=== PATIENT | male | born 1985 | race Two or more races ===

== ENCOUNTER 2019-08-18 01:03 | Inpatient (IN) | payer MEDICAID, OTHER ==
[2019-08-18] VITALS (7 sets, daily range): BP systolic 134–165; BP diastolic 51–102
[~2019-08-18] VITALS: Ht 162.6 cm; Wt 83.5 kg
[2019-08-18] MEDS ORDERED: LORAZEPAM INJ 2 MG/ML VIAL ONE (01:07)
--- NOTE | 2019-08-18 01:15 | NUR ---
FSBS: 361 MD AWARE
--- NOTE | 2019-08-18 01:20 | NUR ---
SPOKE WITH PT'S , STATES PT HAD SEIZURE AROUND 12PM AND HAS BEEN LETHARGIC ALL DAY. PER , PT WAS ALSO C/O HEADACHE AND R ARM DISCOMFORT PRIOR TO ARRIVAL. STATES PT HAS BEEN FORGETFUL AND "NOT HIMSELF" FOR A FEW DAYS.
--- NOTE | 2019-08-18 01:20 | NUR ---
end t nimo for NS: 0150
[2019-08-18 01:24] LABS: BASOPHILS # (AUTO) 0.1 /CMM (0.0-0.2); BASOPHILS % (AUTO) 0.4 % (0.0-2.0); EOSINOPHILS % (AUTO) 0.4 % (0.0-6.0); HEMATOCRIT 46 % (39-51); HEMOGLOBIN 15.8 g/dL (13.5-17.5); LYMPHOCYTES # (AUTO) 4.1 /CMM (0.8-4.8); LYMPHOCYTES % (AUTO) 34.3 % (20.0-44.0); MEAN CORPUSCULAR HGB CONC 34 g/dl (31.0-36.0); MEAN CORPUSCULAR VOLUME 91 fL (80-96); MONOCYTES # (AUTO) 0.5 /CMM (0.1-1.30); MONOCYTES % (AUTO) 4.1 % (2.0-12.0); NEUTROPHILS # (AUTO) 7.2 /CMM (1.8-8.9); NEUTROPHILS % (AUTO) 60.8 % (43.0-81.0); PLATELET COUNT (AUTO) 261 /CMM (150-450); RED BLOOD CELL COUNT(AUTO) 5.11 MIL/uL (4.5-6.0); WHITE BLOOD COUNT (AUTO) 11.9 K/uL (4.3-11.0)
--- NOTE | 2019-08-18 01:24 | NUR ---
2ND IV LINE STARTED
--- NOTE | 2019-08-18 01:25 | NUR ---
code stroke called and pt was wheeled to the CT
[2019-08-18] MEDS ORDERED: IOHEXOL-350 100 ML VIAL IV ONE (01:26)
[2019-08-18] MEDS ORDERED: IV NS 0.9% 250 ML IV ONE (01:26)
[2019-08-18] MEDS ORDERED: LORAZEPAM INJ 2 MG/ML VIAL IVP ONE (01:30)
[2019-08-18] MEDS ORDERED: IV NS 0.9% 500 ML BAG IV ONE (01:30)
[2019-08-18 01:37] LABS: ALANINE AMINOTRANSFERASE 26 U/L (12-78); ALBUMIN 1.9 g/dL (3.4-5.0); ALCOHOL, BLOOD < 3 mg/dL (0-0); ALKALINE PHOSPHATASE 117 U/L (46-116); ASPARTATE AMINOTRANSFERASE 17 U/L (15-37); BILIRUBIN,DIRECT 0.1 mg/dL (0.0-0.2); BILIRUBIN,TOTAL 0.3 mg/dL (0.2-1.0); CALCIUM, SERUM 9.1 mg/dL (8.5-10.1); CARBON DIOXIDE 27 mmol/L (21-32); CHLORIDE 95 mmol/L (98-107); CREATININE 2.3 mg/dL (0.6-1.3); POTASSIUM 4.2 mmol/L (3.5-5.1); SODIUM SERUM 129 mmol/L (136-145); TOTAL PROTEIN, SERUM 6.7 g/dL (6.4-8.2); UREA NITROGEN, BLOOD 25 mg/dL (7-18)
[2019-08-18 01:40] LABS: GLUCOSE 376 mg/dL (74-106)
--- NOTE | 2019-08-18 01:40 | NUR ---
BACK FROM CT
--- NOTE | 2019-08-18 01:44 | NUR ---
PT ON TELE NEURO ASSESSMENT BY DR MURRAY
--- NOTE | 2019-08-18 01:50 | NUR ---
DR. BATES ON THE PHONE WITH NEUROLOGIST, DR. MOYA
--- NOTE | 2019-08-18 01:59 | NUR ---
[facility]
--- NOTE | 2019-08-18 02:05 | NUR ---
DR. BATES ON THE PHONE WITH DR. LENZ
[2019-08-18] MEDS ORDERED: LEVETIRACETAM (500MG) 500 MG/5 ML VIAL IV ONE (02:14)
[2019-08-18] MEDS ORDERED: LABETALOL HCL IV 100MG VIAL ONE (02:15)
[2019-08-18] MEDS ORDERED: LABETALOL HCL IV 100MG VIAL IV ONE (02:30)
[2019-08-18] MEDS ORDERED: LEVETIRACETAM (500MG) 1,000 MG in IV NS 0.9% 100 ML IV SCH (02:30)
--- NOTE | 2019-08-18 02:43 | NUR ---
REPORT GIVEN TO ALDO
--- NOTE | 2019-08-18 02:53 | NUR ---
MORTGAGE PROCESSING MANAGERUTILITY BILL COLLECTOR NOTES Received patient from ER via [facility] accompanied by 2 ER staff. Admitted to Tele 325-2 due to stroke under the service of Dr. Kevin Kaur. Transferred patient to bed comfortably with 4 persons assists. Patient noted unable to move Right Side of his body. Admission routine done. Patient's belongings inventory completed by the assigned JIG AND FIXTURE REPAIRER, patient unable to sign due to condition. Put on tele monitor, NSR noted. Initial skin assessment done: no skin issues identified at this time. Patient noted with difficulty answering routine admission questions. Able to speak with the Tammi. Patient noted with severe R LUE/LLE weakness, no resistance to gravity; L LUE/LLE with some resistance to gravity. Peripheral IV line noted on RFA G#18, SL; LAC G#18 SL both patent, no s/sx of infiltration noted. Patient saturating well in RA. Slurred speech noted. Kept on NPO, mouth care done, patient noted able to swallow water without difficulty noted. Awaiting for admission MD's admitting orders at this time. Kept patient on bed comfortably, BLE SCD on, HOB elevated. On fall and aspiration precautions. Will continue to monitor accordingly.
--- NOTE | 2019-08-18 03:01 | NUR ---
PT WAS TRANSFERRED TO 325 UNDER ACLS
[2019-08-18] MEDS ORDERED: INSU100V28 IJ (04:34)
[2019-08-18] MEDS ORDERED: METF-442 PO (04:34)
[2019-08-18] MEDS ORDERED: LORAZEPAM INJ 2 MG/ML VIAL IV PRN (07:00)
--- NOTE | 2019-08-18 07:03 | NUR ---
RN CLOSING NOTES Patient asleep, easily awaken. On RA, no SOB/respiratory distress noted. On tele monitor with NSR noted. All nursing needs attended. Kept on bed clean, dry and comfortable. On fall, seizure and aspiration precautions, call light within easy reach. Endorsed.
[2019-08-18] MEDS ORDERED: DEXTROSE 50%-WATER 50 ML DISP.SYRIN IV PRN (08:00)
[2019-08-18] MEDS ORDERED: METFORMIN 500 MG TABLET PO SCH (09:00)
--- NOTE | 2019-08-18 09:00 | NUR ---
rn called dr. keith and questioning if need for neuro consult.states he will take care of it. as well requested that he call and give her an update.md asked rn to call and inform her that he would call her later today or tomorrow.rn did call at this time.
[2019-08-18 09:33] LABS: CHOLESTEROL 492 mg/dL (<200); HDL CHOLESTEROL 53 mg/dL (40-60); LDL 294 mg/dL (0-99); TRIGLYCERIDES 872 mg/dL (30-150)
--- NOTE | 2019-08-18 11:00 | NUR ---
swallow eval done at 1100 am and keppra given at 1159.
[2019-08-18] MEDS: ONDANSETRON HCL/PF 4 MG/2 ML VIAL IV PRN ×2 (11:23→22:51)
--- NOTE | 2019-08-18 11:55 | NUR ---
SW Consult SW consult was requested by due to the pt having a stroke. Pt is a 33 year old male pt. Pt appears to be alert and oriented x4 (time, place, self and situation). Pt appears to be in a euthymic mood and presents with a broad affect. Pt was able to maintain an appropriate tone of voice and the pts speech pattern was slow but coherent. Pt is currently a rule out for COVID so the SW did not meet with the pt at bedside and instead called him through his room phone. SW conducted the Post Stroke Depression (MPHQ-9) Questionnaire with the pt and the pt scored [address] the pt at a risk and does not require the pt to have a psych consult. Pt states that he is not depressed and denied both suicidal and homicidal ideation. Pt states that he wants to be discharged to his home. SW called the pts , Tammi ([phone]), as the pt stated that both him and his are the decision makers. SW confirmed the pts address with the . Pts stated that the pt does not have a history of smoking and does not drink alcohol. SW stated that the pt needs to remain refraining from those behaviors because according to the CDC, it can lead to strokes. Pts stated that the pt has diabetes and does not partake in much physical activity so the SW explained that the pt was at a higher risk for stroke due to his diagnosis of diabetes and stated that the pt needs to get some physical exercise. Pts stated that once the situation with COVID calms down she will go for walks with the pt to the park with their children. NUSRAT then went over the signs of a stroke with the based off of the CDC website and she stated that she was aware of these signs because she noticed them in the pt. NUSRAT also informed her that calling the police is the first step of action as well. NUSRAT informed the pts to understand that after someone has a stroke, the level of functioning can decline and to be patient with the pt for that. She stated that she is going to test his memory with questions every day such as when are their children's birthdays to assist with regaining his memory and she stated that she got a band for the pt to wear on his arm to keep it physically active. Pts stated that their children are having a difficult time because they witnessed the pt having the stroke and the police being called to take him to the hospital. SW stated that the pt was talking to her today and appeared to be doing well with his speech and recommended that the family call him and speak to him today so that the children can understand that the pt is doing well. Plan: Pt will be discharged back to his home ([id number], [address], [place] [address])
[2019-08-18] MEDS: LEVETIRACETAM (250 MG) 250 MG TABLET PO SCH ×2 (11:59→20:24)
[2019-08-18] MEDS: BLOOD SUGAR DIAGNOSTIC 1 EACH STRIP IN SCH ×3 (12:19→23:32)
[2019-08-18] MEDS: INSULIN REGULAR, HUMAN 100 UNIT/ML 3 ML VIAL SQ PRN ×2 (14:52→18:23)
--- NOTE | 2019-08-18 16:27 | NUR ---
unable to do stroke satisfaction survey as pt. very confused.rn called dr. keith regarding confusion questioning if neuro coming and letting him know that radiology recommended mri.stated he would take care of it.rn called pt's and letting him speak with her.
--- NOTE | 2019-08-18 19:00 | NUR ---
calling [employer]. for update.
--- NOTE | 2019-08-18 19:35 | NUR ---
RN OPEN NOTES PATIENT IS LAYING IN BED. NO COMPLAINTS OF PAIN AT THIS TIME. NO SOB/ ACUTE RESPIRATORY DISTRESS NOTED. CALL LIGHT IS WITHIN REACH. BED IS IN LOWEST LOCKED POSITION WITH SIDE RAILS UP, SEMI FOWLERS. WILL CONTINUE TO MONITOR.
--- NOTE | 2019-08-18 21:51 | NUR ---
RN NOTES NOTIFIED DR. JOYCE TORRES REGARDING PATIENT'S BP OF 165/102. DISCUSSED WITH HIM THAT THE PATIENT WAS GIVEN A ONE TIME DOSE OF LABETALOL AROUND 0200 THIS AM SINCE HIS BP WAS HIGH HOWEVER HE SAID THAT IT IS OK, NOT TO GIVE HIM ANYTHING TONIGHT. PATIENT IS A/O X3-4. DR'S MESSAGE IS NOTED AND CARRIED OUT.
[2019-08-19] VITALS: BP 190/114
--- NOTE | 2019-08-19 00:30 | NUR ---
RN NOTES PATIENT'S BP IS NOW 190/[address] JOYCE TORRES. AWAITING ORDERS.
[2019-08-19] MEDS: hydrALAZINE HCL IV 20 MG VIAL IV PRN ×2 (00:55→16:07)
--- NOTE | 2019-08-19 00:55 | NUR ---
RN NOTES ORDERED HYDRALAZINE 10 MG IVP Q8HRS PRN FOR SBP >[address] JOYCE TORRES STATED. NOTED AND CARRIED OUT.
[2019-08-19] MEDS: IV NS 0.9% 1,000 ML IV PRN ×3 (02:29→23:05)
[2019-08-19 04:00] VITALS: BP 136/98
[2019-08-19] MEDS: BLOOD SUGAR DIAGNOSTIC 1 EACH STRIP IN SCH ×4 (06:15→23:05)
--- NOTE | 2019-08-19 06:50 | NUR ---
RN CLOSE NOTES PATIENT IS WATCHING TV. NO COMPLAINTS OF PAIN AT THE MOMENT. ON RA SATURATING AT 99%. NO SOB/ ACUTE RESPIRATORY DISTRESS NOTED. BED IS IN LOWEST LOCKED POSITION WITH SIDE RAILS UP, SEMI FOWLERS. IV ON R FOREARM #18G IS PATENT AND INTACT. IV ON L AC #18G IS PATENT AND INTACT RUNNING NS @ 100MLS/HR. A/OX 3-4. ALL DUE MEDS GIVEN. CALL LIGHT IS WITHIN REACH. WILL ENDORSE TO AM NURSE.
[2019-08-19 06:51] LABS: APPEARANCE,URINE SL CLOUDY (CLEAR); BILIRUBIN,URINE NEGATIVE (NEGATIVE); BLOOD, URINE MODERATE Ery/uL (NEGATIVE); COLOR,URINE YELLOW (YELLOW); KETONES,URINE NEGATIVE (NEGATIVE); LEUKOCYTE ESTERASE ,URINE NEGATIVE (NEGATIVE); NITRITE, URINE NEGATIVE (NEGATIVE); PH,URINE 6.5 (5.0-8.0); PROTEIN,URINE >=300 mg/dl (NEGATIVE); UGLUCOSE >=1000 mg/dL (NEGATIVE); UROBILINOGEN,URINE 0.2 EU/dL (0.2)
[2019-08-19 07:12] LABS: BACTERIA,URINE Many /HPF (None Seen); YEAST,URINE Many /HPF (None Seen)
[2019-08-19 07:15] LABS: SQUAMOUS EPITHELIAL CELL,UR Many /HPF (None Seen)
[2019-08-19 07:23] LABS: CREATININE, URINE 53.4 MG/DL (30.0-125.0); URINE TOTAL PROTEIN 766.2 mg/dL (0-11.9)
[2019-08-19 08:00] LABS: BASOPHILS % (AUTO) 0.5 % (0.0-2.0); EOSINOPHILS % (AUTO) 0.4 % (0.0-6.0); HEMATOCRIT 42 % (39-51); HEMOGLOBIN 14.6 g/dL (13.5-17.5); LYMPHOCYTES # (AUTO) 3.1 /CMM (0.8-4.8); LYMPHOCYTES % (AUTO) 31.2 % (20.0-44.0); MEAN CORPUSCULAR HGB CONC 35 g/dl (31.0-36.0); MEAN CORPUSCULAR VOLUME 89 fL (80-96); MONOCYTES # (AUTO) 0.5 /CMM (0.1-1.30); MONOCYTES % (AUTO) 4.9 % (2.0-12.0); NEUTROPHILS # (AUTO) 6.3 /CMM (1.8-8.9); PLATELET COUNT (AUTO) 228 /CMM (150-450); RED BLOOD CELL COUNT(AUTO) 4.71 MIL/uL (4.5-6.0); WHITE BLOOD COUNT (AUTO) 10.1 K/uL (4.3-11.0)
[2019-08-19 08:04] VITALS: BP 151/87
[2019-08-19 08:28] LABS: ALBUMIN 1.5 g/dL (3.4-5.0); BILIRUBIN,TOTAL 0.2 mg/dL (0.2-1.0); CALCIUM, SERUM 8.7 mg/dL (8.5-10.1); CREATININE 2.1 mg/dL (0.6-1.3); MAGNESIUM 2.3 mg/dL (1.8-2.4); PHOSPHORUS 4.5 mg/dL (2.5-4.9); POTASSIUM 3.6 mmol/L (3.5-5.1); TOTAL PROTEIN, SERUM 5.5 g/dL (6.4-8.2)
[2019-08-19 08:39] LABS: THYROID STIMULATING HORMONE 4.131 uIU/mL (0.358-3.74); URIC ACID 6.2 mg/dL (2.6-7.2)
[2019-08-19] MEDS: LEVETIRACETAM (250 MG) 250 MG TABLET PO SCH ×2 (10:13→21:44)
[2019-08-19] MEDS: INSULIN REGULAR, HUMAN 100 UNIT/ML 3 ML VIAL SQ PRN ×3 (12:50→23:16)
[2019-08-19 13:53] LABS: EOSINOPHIL,URINE None Seen
--- NOTE | 2019-08-19 16:40 | NUR ---
bp elevated.medicated with hydralazine iv.
[2019-08-19 18:04] VITALS: BP 178/111
--- NOTE | 2019-08-19 18:30 | NUR ---
received report at this time that pt. is negative for covid -19.
[2019-08-19 20:00] VITALS: BP 144/86
[2019-08-20] VITALS: BP 177/110
[2019-08-20 04:00] VITALS: BP 154/100
--- NOTE | 2019-08-20 06:50 | NUR ---
RN PM CLOSING NOTE PATIENT IS WATCHING TV IN BED. NO COMPLAINTS OF PAIN AT THE MOMENT. ON RAIN NO APPARENT RESPIRATORY DISTRESS BREATHING IS EVEN AND UNLABORED. BED IS IN LOWEST LOCKED POSITION WITH SIDE RAILS UP, SEMI FOWLERS. IV ON R FOREARM #18G IS PATENT AND INTACT. IVF NS RUNNING AT 100 ML PER HOUR. A/OX 3 WITH EXPRESSIV APHASIA. MRI QUESTIONAIRE COMPLETED MRI TODAY MAY BE ORDERED. BED DOWN LOCKED WILL ENDORSE TO AM NURSE. CALL LIGHT IN REACH VERBALIZED UNDERSTANDING TO CALL FOR ASSISTANCE NEEDED.
[2019-08-20] MEDS: BLOOD SUGAR DIAGNOSTIC 1 EACH STRIP IN SCH ×4 (06:56→21:54)
[2019-08-20] MEDS: INSULIN REGULAR, HUMAN 100 UNIT/ML 3 ML VIAL SQ PRN ×4 (06:57→21:56)
[2019-08-20 07:06] LABS: PTH, INTACT 25 pg/mL (15-65)
--- NOTE | 2019-08-20 07:53 | NUR ---
RN OPENING NOTE Patient is resting in bed, A/O x3, able to state he is in the hospital (not able to state [facility]), able to state the current year, able to recall reason why he came into the hospital. Tele monitor SR 90s-100. IV line in the RFA #22g is clean and intact running NS @ 100ml/hour. Nursing swallow eval done. Bed is in lowest position, side rails x3 in upright position, call light is within reach and patient is aware of how to call for assistance when needed. Fall, safety, aspiration, ans seizure precautions enforced. Will continue with plan of care.
[2019-08-20 08:00] VITALS: BP_SYST 170; BP_SYST 176; BP_DIAS 106
[2019-08-20 08:04] LABS: BASOPHILS % (AUTO) 0.6 % (0.0-2.0); EOSINOPHILS % (AUTO) 0.4 % (0.0-6.0); HEMATOCRIT 42 % (39-51); HEMOGLOBIN 14.4 g/dL (13.5-17.5); LYMPHOCYTES # (AUTO) 2.8 /CMM (0.8-4.8); MEAN CORPUSCULAR HGB CONC 35 g/dl (31.0-36.0); MEAN CORPUSCULAR VOLUME 90 fL (80-96); MONOCYTES # (AUTO) 0.4 /CMM (0.1-1.30); MONOCYTES % (AUTO) 4.9 % (2.0-12.0); NEUTROPHILS # (AUTO) 4.5 /CMM (1.8-8.9); NEUTROPHILS % (AUTO) 58.1 % (43.0-81.0); PLATELET COUNT (AUTO) 230 /CMM (150-450); WHITE BLOOD COUNT (AUTO) 7.8 K/uL (4.3-11.0)
--- NOTE | 2019-08-20 08:12 | NUR ---
MRI APPROVED BY DR. CHRISTOPHER.TEXTED PACK WORKER SUPERVISOR AT 7.37AM NO RESPONSE YET.
[2019-08-20 08:39] LABS: CALCIUM, SERUM 8.2 mg/dL (8.5-10.1); POTASSIUM 3.6 mmol/L (3.5-5.1)
[2019-08-20] MEDS: LEVETIRACETAM (250 MG) 250 MG TABLET PO SCH ×2 (08:44→20:40)
[2019-08-20 09:00] VITALS: BP 165/98
--- NOTE | 2019-08-20 12:22 | NUR ---
RN NOTE Patient went down to MRI
[2019-08-20 12:36] LABS: *SPE A/G RATIO 0.5 (0.7-1.7); *SPE ALBUMIN 1.6 g/dL (2.9-4.4); *SPE ALPHA-1-GLOBULIN 0.2 g/dL (0.0-0.4); *SPE ALPHA-2-GLOBULIN 1.4 g/dL (0.4-1.0); *SPE BETA GLOBULIN 1.1 g/dL (0.7-1.3); *SPE GLOBULIN, TOTAL 3.2 g/dL (2.2-3.9); *SPE M-SPIKE Not Observed g/dL (Not Observed); *SPEGAMMA GLOBULIN 0.5 g/dL (0.4-1.8)
[2019-08-20 16:00] VITALS: BP 135/87
[2019-08-20] MEDS: IV NS 0.9% 1,000 ML IV PRN (16:01)
[2019-08-20] MEDS ORDERED: GADOTERIDOL 279.3 MG/ML VIAL IV ONE (16:49)
--- NOTE | 2019-08-20 18:24 | NUR ---
RN CLOSING NOTE Patient is resting in bed, A/O x3, patient seems more alert compared to this morning. IV line in the RFA #22g is clean and intact running NS @ 100ml/hour. All patient needs met, all due medications given. Patient is independent with care and has BRP. Bed is in lowest position, side rails x3 in upright position, call light is within reach and patient is aware of how to call for assistance when needed. Fall, safety, aspiration, ans seizure precautions enforced. Will endorse to outpatient psychiatrist.
--- NOTE | 2019-08-20 20:00 | NUR ---
MS3 RN OPENING NOTE Patient is resting in bed, A/O x3. IV line in the RFA #22g is clean and intact running NS @ 100ml/hour. Bed is in lowest position, side rails x3 in upright position, call light is within reach and patient is aware of how to call for assistance when needed. Fall, safety, aspiration, ans seizure precautions enforced. Will continue with plan of care.
[2019-08-20 20:03] VITALS: BP 147/91
[2019-08-21] MEDS: IV NS 0.9% 1,000 ML IV PRN (01:47)
[2019-08-21] MEDS: BLOOD SUGAR DIAGNOSTIC 1 EACH STRIP IN SCH ×4 (06:34→21:32)
[2019-08-21] MEDS: INSULIN REGULAR, HUMAN 100 UNIT/ML 3 ML VIAL SQ PRN ×2 (06:38→12:36)
--- NOTE | 2019-08-21 06:46 | NUR ---
MS3 RN CLOSING NOTE Patient is resting in bed, A/O x3. IV line in the RFA is clean and intact running NS @ 100ml/hour. All patient needs met. Patient is independent with care and has BRP. Bed is in lowest position, side rails x3 in upright position, call light is within reach. No s/s of resp distress beathing even and unlabored. Fall, safety, aspiration, ans seizure precautions enforced. Will endorse to manager of internal audit.
[2019-08-21 07:28] LABS: BASOPHILS % (AUTO) 0.5 % (0.0-2.0); EOSINOPHILS % (AUTO) 0.4 % (0.0-6.0); HEMATOCRIT 42 % (39-51); HEMOGLOBIN 14.1 g/dL (13.5-17.5); LYMPHOCYTES # (AUTO) 3.1 /CMM (0.8-4.8); LYMPHOCYTES % (AUTO) 34.5 % (20.0-44.0); MEAN CORPUSCULAR HGB CONC 34 g/dl (31.0-36.0); MEAN CORPUSCULAR VOLUME 90 fL (80-96); MONOCYTES # (AUTO) 0.4 /CMM (0.1-1.30); MONOCYTES % (AUTO) 4.6 % (2.0-12.0); NEUTROPHILS # (AUTO) 5.4 /CMM (1.8-8.9); PLATELET COUNT (AUTO) 237 /CMM (150-450); RED BLOOD CELL COUNT(AUTO) 4.64 MIL/uL (4.5-6.0)
--- NOTE | 2019-08-21 07:30 | NUR ---
MS/RN Opening note Received patient in bed, AO x 3-4, clear speech, able to responds all stimuli. Denies pain or any discomfort. Skin is warm to touch, kept clean/dry, intact IV site. Respiratory even and unlabored with room air, no distress observed. Call light within reach, will continue to monitor.
[2019-08-21 07:40] LABS: CALCIUM, SERUM 8.6 mg/dL (8.5-10.1); POTASSIUM 4.1 mmol/L (3.5-5.1)
[2019-08-21 08:00] VITALS: BP 149/105
[2019-08-21] MEDS ORDERED: DEXTROSE 50%-WATER 50 ML DISP.SYRIN IV PRN (08:30)
[2019-08-21] MEDS: FLUCONAZOLE (100 MG) 100 MG TABLET PO SCH (09:02)
[2019-08-21] MEDS: LEVETIRACETAM (250 MG) 250 MG TABLET PO SCH ×2 (09:03→21:29)
[2019-08-21] MEDS: LISINOPRIL (5MG) 5 MG TABLET PO SCH (09:03)
[2019-08-21 16:00] VITALS: BP 119/74
[2019-08-21] MEDS: *INSULIN REGULAR(HUMULIN R)HUM 100 UNIT/ML VIAL SQ PRN ×2 (17:38→21:28)
--- NOTE | 2019-08-21 18:30 | NUR ---
MS/RN Opening note Patient is on bed, comfortably, denies pain or any discomfort. Skin is warm to touch, kept clean/dry, intact IV site. Respiratory even and unlabored with room air, no distress observed. Keep low position of the bed with locked wheel and elevated HOB for secure airway. Call light within reach, will continue to monitor. Addendum: 08/21/19 at 2 by LEXY LOMAS RN Error
--- NOTE | 2019-08-21 19:06 | NUR ---
MS RN: RECEIVED PATIENT Patient is standing, ambulates independently. Tolerating room air, denies SOB. A/O x3 forgetful, reorient easily. Denies pain, no c/o headache. Maintained safety.
[2019-08-21 20:00] VITALS: BP 155/108
[2019-08-21 20:30] VITALS: BP 155/108
[2019-08-22] MEDS: IV NS 0.9% 1,000 ML IV PRN (02:44)
--- NOTE | 2019-08-22 06:19 | NUR ---
MS RN: END OF SHIFT REPORT Patient in bed, 98% on RA, denies SOB. IVF infusing, afebrile overnight. Neuro checks Q4hr, mild aphasia, forgetful reorient easily. NIH stroke scale score improving. No episode of seizure, denies pain. Maintained safety. Awaits Neuro to clear patient for dc home. Will endorse to oncoming RN.
[2019-08-22] MEDS: BLOOD SUGAR DIAGNOSTIC 1 EACH STRIP IN SCH ×2 (06:44→11:45)
[2019-08-22] MEDS: INSULIN REGULAR, HUMAN 100 UNIT/ML 3 ML VIAL SQ PRN ×2 (06:45→13:09)
[2019-08-22 07:04] LABS: BASOPHILS % (AUTO) 0.5 % (0.0-2.0); EOSINOPHILS % (AUTO) 0.6 % (0.0-6.0); HEMATOCRIT 44 % (39-51); HEMOGLOBIN 14.7 g/dL (13.5-17.5); MEAN CORPUSCULAR HGB CONC 33 g/dl (31.0-36.0); MEAN CORPUSCULAR VOLUME 91 fL (80-96); MONOCYTES # (AUTO) 0.3 /CMM (0.1-1.30); MONOCYTES % (AUTO) 3.8 % (2.0-12.0); NEUTROPHILS # (AUTO) 3.9 /CMM (1.8-8.9); NEUTROPHILS % (AUTO) 54.1 % (43.0-81.0); PLATELET COUNT (AUTO) 245 /CMM (150-450); RED BLOOD CELL COUNT(AUTO) 4.84 MIL/uL (4.5-6.0); WHITE BLOOD COUNT (AUTO) 7.3 K/uL (4.3-11.0)
[2019-08-22 07:36] LABS: CALCIUM, SERUM 8.9 mg/dL (8.5-10.1); CREATININE 1.8 mg/dL (0.6-1.3); MAGNESIUM 2.1 mg/dL (1.8-2.4); PHOSPHORUS 4.2 mg/dL (2.5-4.9); POTASSIUM 4.2 mmol/L (3.5-5.1)
[2019-08-22 08:00] VITALS: BP 144/90
--- NOTE | 2019-08-22 08:00 | NUR ---
RECEIVED PT. THIS AM.ALERT AND ORIENTED X3.FORGETFUL AND DIFFICULTY RECALLING NAME OF HOSPITAL AND DAY OF WEEK. MUSCULAR STRENGTH GOOD. STEADY ON FEET.VS STABLE. NO ACUTE DISTRESS.
[2019-08-22] MEDS: LEVETIRACETAM (250 MG) 250 MG TABLET PO SCH (09:43)
[2019-08-22] MEDS: FLUCONAZOLE (100 MG) 100 MG TABLET PO SCH (09:44)
[2019-08-22] MEDS: LISINOPRIL (5MG) 5 MG TABLET PO SCH (09:44)
--- NOTE | 2019-08-22 11:30 | NUR ---
Leeroy GOLDBERG IN WITH PLANS FOR DC TODAY.
[2019-08-22] MEDS ORDERED: SIMV-49 PO (13:28)
[2019-08-22] MEDS ORDERED: ASPI-992 PO (13:28)
[2019-08-22] MEDS ORDERED: LEVE250T2 PO (13:28)
[2019-08-22] MEDS ORDERED: LISI-607 PO (13:28)
[2019-08-22] MEDS ORDERED: FLUC100T8 PO (13:28)
--- NOTE | 2019-08-22 14:00 | NUR ---
PTX IN AND NOTE MADE.
--- NOTE | 2019-08-22 15:00 | NUR ---
CALLED BY RN GIVEN INFO ON DC.
--- NOTE | 2019-08-22 15:45 | NUR ---
HEP LOCK OUT. BANDAGE TO SITE. CALLED WITH TOTAL INFO ON DISCHARGE PLAN INCLUDING MEDS.AWARE TO GARAGE DOOR INSTALLER MEDS AT PHARMACY.
[2019-08-22 16:00] VITALS: BP 144/86
--- NOTE | 2019-08-22 16:10 | NUR ---
ALL PAPERWORK SIGNED INCLUDING BELONGING SHEET. TAKEN VIA W/C TO LOBBY ACCOMPANIED BY DISH CLOTH INSPECTOR. INSTRUCTED TO CALL WITH ANY QUESTIONS.
== END 2019-08-22 16:11 | disposition home or self-care (01) | DRG 53 ==
LOC: ER 01:05 → TELE 02:13 → MED 08-20 08:43
PROVIDERS: ADMIT Family Medicine; ATTEND Registered Nurse
DX: R56.9 Unspecified convulsions (principal); N17.0 Acute kidney failure with tubular necrosis; E43 Unspecified severe protein-calorie malnutrition; E10.22 Type 1 diabetes mellitus with diabetic chronic kidney disease; E86.1 Hypovolemia; D72.829 Elevated white blood cell count, unspecified; E88.09 Other disorders of plasma-protein metabolism, not elsewhere classified; E87.1 Hypo-osmolality and hyponatremia; Z68.31 Body mass index [BMI] 31.0-31.9, adult; E10.65 Type 1 diabetes mellitus with hyperglycemia; N18.9 Chronic kidney disease, unspecified; I12.9 Hypertensive chronic kidney disease with stage 1 through stage 4 chronic kidney disease, or unspecified chronic kidney disease
CPT/HCPCS: 36415; 70450-TC; 70496-TC; 70498-TC; 70553-TC; 71045-TC; 80048-TC; 80053-TC; 80061-TC; 80076-TC; 80305; 81000-TC; 82550-TC; 82570-TC; 82962-TC; 83735-TC; 83935-TC; 83970; 84100-TC; 84155; 84155-TC; 84165; 84300-TC; 84443-TC; 84484-TC; 84550-TC; 85025-TC; 87081-TC; 87086-TC; 92611-TC; 93307-TC; 97110-TC; 97116-TC; 97530-TC; 97535-TC; A9579; G0378; G0480; J0360; J1815; J1953; J2060; J2405; J3490; J7030; J7040; J7050; Q9967